=== PATIENT | female | born 1985 | race Caucasian/White ===

== ENCOUNTER 2018-09-14 20:08 | Emergency (ER) | payer OTHER ==
[2018-09-14 21:44] LABS: URINE BLOOD (Dip) POC Negative (NEGATIVE); URINE GLUCOSE (Dip) POC Negative (NEGATIVE); URINE KETONES (Dip) POC 2+ (NEGATIVE); URINE LEUKOCYTE EST (Dip) POC 1+ (NEGATIVE); URINE NITRITE (Dip) POC Negative (NEGATIVE); URINE TOTAL PROTEIN POC Negative (NEGATIVE)
[2018-09-14] MEDS: PHENAZOPYRIDINE 100 MG TAB PO (21:54)
[2018-09-14] MEDS: NITROFURANTOIN (SR) 100 MG CAP PO (22:03)
== END 2018-09-14 22:18 | disposition home or self-care (01) ==
LOC: E/R 20:08
DX: R30.0 Dysuria (principal)
CPT/HCPCS: 81003; 81025; 99283

== ENCOUNTER 2019-02-26 02:57 | Emergency (ER) | payer OTHER ==
[2019-02-26] MEDS: DIPHTH/TET/ACEL PERTUSS (ADULT) 0.5 ML VIAL IM* (04:26)
[2019-02-26] MEDS: BACITRACIN 0.9 GM OINT TOP (04:27)
[2019-02-26] MEDS: AMOXICILLIN/CLAV 875 MG TAB PO (04:36)
== END 2019-02-26 04:41 | disposition home or self-care (01) ==
LOC: FTE 02:57
DX: S01.81XA Laceration without foreign body of other part of head, initial encounter (principal); S01.21XA Laceration without foreign body of nose, initial encounter; W55.03XA Scratched by cat, initial encounter; Y92.009 Unspecified place in unspecified non-institutional (private) residence as the place of occurrence of the external cause; Z23 Encounter for immunization
CPT/HCPCS: 90471; 90715; 99283-25